=== PATIENT | male | born 1970 | race Caucasian/White ===

== ENCOUNTER 2016-12-04 14:29 | Day surgery (SDC) | payer OTHER ==
[2016-12-04] VITALS (13 sets, daily range): BP systolic 117–147; BP diastolic 66–89; PULSE 88–110; RESP 13–20; O2SAT 92–100
[~2016-12-04] VITALS: Ht 162.6 cm; Wt 64.8 kg
[~2016-12-04 14:29] MED LIST: CeFAZolin Inj 2 GM in IV Premix 1 EACH IV ONE
[2016-12-04] MEDS ORDERED: Propofol 10,000 mCg/mL 20 mL Inj ONE (14:30)
[2016-12-04] MEDS ORDERED: fentaNYL-PF 50 mCg/mL 2 mL Inj ONE (14:30)
[2016-12-04] MEDS ORDERED: Ondansetron 2 mg/mL 2 mL Inj ONE (14:30)
[2016-12-04] MEDS ORDERED: CeFAZolin Inj 2 gm / 50mL D5W IV ONE (15:12)
[2016-12-04] MEDS ORDERED: Lactated Ringer's 1,000 ML IV ONE (15:15)
[2016-12-04] MEDS ORDERED: IBUP200C PO (16:05)
[2016-12-04] MEDS ORDERED: TURM1POW MC (16:05)
[2016-12-04] MEDS ORDERED: [UNRECOGNIZED DRUG - OTHER] (16:05)
[2016-12-04] MEDS ORDERED: [UNRECOGNIZED DRUG - OTHER] PO (16:05)
[2016-12-04] MEDS ORDERED: [UNRECOGNIZED DRUG - OTHER] (16:05)
[2016-12-04] MEDS ORDERED: [UNRECOGNIZED DRUG - OTHER] (16:05)
[2016-12-04] MEDS ORDERED: SKULLCAP (16:05)
[2016-12-04] MEDS ORDERED: MAGN250T2 PO (16:05)
[2016-12-04] MEDS ORDERED: Lactated Ringer's 1,000 ML IV SCH ×2 (16:16→18:28)
[2016-12-04] MEDS ORDERED: Lactated Ringer's 500 ML IV PRN ×2 (16:16→18:28)
--- NOTE | 2016-12-04 16:19 | PCM.HPANE ---
Patient Data Surgeon Admitting Provider: Attending Provider:Juhi Bender MD Primary Care Physician:Ede Palmer MD Other Provider:Kaley Lacyingham Anesthesia Reason for Visit Uretheral Stricture, Gross Hematuria Ht/WT & BMI Height (Feet): 5 Height (Inches): 4 Weight (Kilograms): 64.8 Body Mass Index 24.00 Allergies Coded Allergies: No Known Allergies (Unverified , 12/04/16) Past Anesthesia History Anesthesia History: Denies:: Abnormal Airway, Anesthesia Reactions, Difficult Intubation, Fam Anesthesia Reaction, Fam Malignant Hypertherm, Malignant Hyperthermia Diabetes History Hx Diabetes?: No MRSA MRSA: No Medications Hypertension Medication: No Home Meds Incl Beta Collin: No Reported Medications [Bouarian] No Conflict Check Hs 12/04/16 [Skullcap] No Conflict Check Bid 12/04/16 [Akebia] No Conflict Check5 Mg PO BID 12/04/16 [Herbal Agm] No Conflict Check TID PRN For Pain 12/04/16 Turmeric (Curcumin)1 Gm Powder2 Gm MC BID 12/04/16 Magnesium 250 Mg [id number] Mg PO BID 12/04/16 [Nactylgalutime] No Conflict Check 12/04/16 Ibuprofen 200 Mg [id number] Mg PO QID PRN For Pain Ref 0 12/04/16 History History of ENT Problems?: No HEENT History: Denies:: Abnormal Airway Cataracts Difficult Intubation Dysphagia Glaucoma Hearing Problem Sinus Problem TMJ Denture Type: None Teeth Condition: Within Normal Limits Hx of Heart Problems?: No Cardiovascular History: Denies:: AICD Abdominal Aortic Aneurism Atrial Fibrillation Cardiac Surgery Chest Pain Congestive Heart Failure Coronary Artery Disease Edema Heart Murmur Hypertension Irregular Heartbeat Pacemaker Peripheral Vascular Rheumatic Fever Thrombophlebitis Valvular Heart Disease Hx of Respiratory Problem?: No Respiratory History: Denies:: Asthma COPD Chest Surgery Cough Dyspnea Emphysema Hemoptysis Oxygen Administration Pneumonia Pulmonary Embolism Tuberculosis Use of C-PAP Machine Use of Inhalers / NEBS Hx Neurologic Problems?: No Neurological History: Denies:: Alzheimer's Disease CVA Dementia Dizziness Headaches Multiple Sclerosis Parkinson's Disease Seizures TIA Hx of GI Problems?: No Hx of Problems?: Yes Genitourinary History: Positive for:: Kidney Stones Male Hx: Denies:: Prostate Problems Scrotal Mass Testicular Surgery Skin History: Denies:: History Skin Disorders? Pressure Ulcers Hx Musculoskeletal Problems?: No Musculoskeletal History: Denies:: Back Injury Degenerative Joint Fibromyalgia Joint Replacement Musculoskeletal Trauma Myasthenia Gravis Osteoarthritis Rheumatoid Arthritis Systemic Lupus Hx of Psycho/Social Problems?: No Psycho Social History: Denies:: Anxiety Bipolar Disorder Hx Depression Suicide Attempt Hx Surgeries?: No Hx Any Other Health Problems?: No Other History: Denies:: Cancer Endocrine Disease Hospitalization Thyroid Disease History Blood Transfusions: Positive for:: Accept Blood Products? Denies:: Blood Transfuse Reaction Blood Transfusions Hx Diabetes: No Hx Alcohol Use: NoHx Substance Use: NoHave You Smoked inLast 12 mo: No Stop/Bang Treated for Sleep Apnea?: No Do You Have a CPAP Machine?: No S-Snoring: Do You Snore Loudly: No T-Tired: feel tired, fatigued: No O-Obsered: Observed not breath: No P-Blood Pressure: treated: No B- Body Mass Index > 35 kg/m2: No A- Age over 50: No N- Neck Large Circumference: No G- Gender Male: Yes RAAD Total Score: 1 Risk Assessment Category Category 1A: Patient has history of documented sleep apnea, and HAS NOT received any narcotic, sedative or anesthesia administration during this stay. Category 1B: Patient has history of documented sleep apnea, and HAS received any narcotic , sedative or anesthesia administration during this stay Category 2: Patient has SUSPECTED Obstructive Sleep Apnea, and HAS received any narcotic , sedative or anesthesia administration during this stay. Category 3: Patient has SUSPECTED Obstructive Sleep Apnea and HAS NOT received narcotic, sedative or anesthesia administration during this stay. Category 4: Outpatient in Procedural Areas with known sleep apnea or who screen positive for High Risk via the STOP/BANG questionnaire. Exam Exam Vital Signs Vital Signs Date Time Temp Pulse Resp B/P Pulse Ox O2 Delivery O2 Flow Rate FiO2 12/04/16 15:00 37.0 88 16 117/72 99 Room Air General Appearance: Alert, Oriented X3, Cooperative, No Acute Distress HEENT/AIRWAY: MP 2 Lungs: Clear to Auscultation, Normal Air Movement Heart: Exam Unremarkable, Regular Rate/Rhythm, No Murmurs/Rubs/Gallops Meds/Labs/Diagnostics Admission Meds Current Medications Lactated Ringer's (Lr) 1,000 ml @ ud STK-MED ONCE IV Last administered on 12/04t 15:15; Start 12/04/16 at 15:15; Stop 12/04/16 at 15:50; Status DC Plan Impression Patient chart reviewed, patient interviewed and anesthestic plan with risks, benefits, and alternatives discussed, and informed consent obtained. ASA Physical Status: ASA2 Mod Systemic Disease Anesthetic Plan: GA Bene/Risks/Altern/Consents: Yes HP Complete Prior to Induction: Yes Faisal Bashir MD Dec 04, 2016 16:19
[2016-12-04] MEDS ORDERED: Ondansetron 2 mg/mL 2 mL Inj IVPUSH PRN ×2 (16:20→18:30)
[2016-12-04] MEDS ORDERED: Dexamethasone 4 mg/mL Inj IVPUSH PRN ×2 (16:20→18:30)
[2016-12-04] MEDS ORDERED: EPHEDrine Sulfate 50 mg/mL Inj IVPUSH PRN ×2 (16:20→18:30)
[2016-12-04] MEDS ORDERED: fentaNYL-PF 50 mCg/mL 2 mL Inj IVPUSH PRN ×2 (16:20→18:30)
[2016-12-04] MEDS ORDERED: HYDROmorphone 1 mg/mL Inj IVPUSH PRN ×2 (16:20→18:30)
[2016-12-04] MEDS ORDERED: Phenylephrine 10,000 mCg/mL Inj IVPUSH PRN ×2 (16:20→18:30)
[2016-12-04] MEDS ORDERED: MetoCLOpramide 5 mg/mL 2 mL Inj IVPUSH PRN ×2 (16:20→18:30)
--- NOTE | 2016-12-04 19:11 | PCM.ANEP1 ---
Post Anesthesia PACU Phase 1 Assessment Vital Signs Vital Signs Date Time Temp Pulse Resp B/P Pulse Ox O2 Delivery O2 Flow Rate FiO2 12/04/16 19:00 96 17 132/81 99 Room Air 12/04/16 18:55 96 16 141/78 99 Room Air 12/04/16 18:50 99 20 139/83 99 Room Air 12/04/16 18:45 99 15 131/84 99 Room Air 12/04/16 18:40 90 13 147/71 100 Simple Mask 8 12/04/16 18:35 37.6 110 14 130/70 100 Simple Mask 8 12/04/16 15:00 37.0 88 16 117/72 99 Room Air Anesthetic Administered: GA Level of Alertness: Awake, talking BROWN's with Equal Strength: Yes Pain: No Nausea or Vomiting: No CV Function & Hydration Stable: Yes Airway Device: Oxygen Delivery: Simple Mask Lungs: Clear to Auscultation, Normal Air Movement Dermatome Level: Full Sensation PACU Phase 2 Assessment Complications: No Follow up Care: No Patient Instructions Provided: N/A Faisal Bashir MD Dec 04, 2016 19:11
--- NOTE | 2016-12-04 19:30 | OP ---
[address] [address] OPERATIVE REPORT PATIENT: CHRISTINE LE : 1970 MR#: [id number] ADMIT: 12/04/2016 JOB ID: [id number] DATE OF SURGERY: 12/04/2016 PREOPERATIVE DIAGNOSIS(ES): 1. Urethral stricture. 2. Gross hematuria. POSTOPERATIVE DIAGNOSIS(ES): 1. Urethral stricture. 2. Bladder tumor. PROCEDURE PERFORMED: 1. Digital rectal exam under anesthesia. 2. Cystoscopy and dilation of urethral stricture. Modifier 22 is being requested given the severe nature of the urethral stricture. 3. Transurethral resection of bladder tumor (greater than 4 cm) SURGEON: Juhi Bender MD ESTHETICIAN PERMANENT MAKEUP ARTIST: None. FINDINGS: 1. Normal rectal exam under anesthesia. Prostate is approximately 25 g. There were no palpable abnormal masses. 2. Pinpoint urethral stricture at the bulbar urethra. 3. 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 ANESTHESIA: General. ESTIMATED BLOOD LOSS: Less than 5 mL. DRAINS: A 20-New Zealander Abdalla catheter to the bladder. SPECIMENS: Bladder tumor. COMPLICATIONS: None. CONDITION: Stable. INDICATIONS FOR PROCEDURE: The patient is a 45-year-old gentleman with a history of urinary tract symptoms and gross hematuria. His symptoms the began this past May 2016. Then in June of this year he began passing blood in his urine. CT scan is quite suspicious for a bladder lesion that is fairly large at the dome of the bladder. There is also a question of a lesion on the posterior bladder base, towards the prostate, that could be seminal vesicle or some other undefined lesion. In clinic yesterday it was found on cystoscopy that he had a pinpoint urethral stricture that would require dilation for cystoscopy. He now presents for the aforementioned procedure. DESCRIPTION OF PROCEDURE: After informed consent was obtained, the patient was taken to the operating room. A time-out was performed identifying correct patient, surgical site, and procedure. General anesthesia was smoothly induced. He was given intravenous antibiotics just prior to the start of the procedure. He was placed in the lithotomy position and all pressure points were identified and appropriately padded. A digital rectal exam was performed. There were no abnormal findings on thorough examination. His genitals were then prepped and draped in the usual sterile fashion. A 22-New Zealander rigid cystoscope was applied to the patient's urethra and upon navigating to the bulbar urethra there was found again the two small holes within the urethra. The lumen on the right was just large enough to be cannulated with a 5-New Zealander open-ended Pollack. A retrograde urethrogram was shot through this. The contrast easily navigated into the bladder. The smaller hole inferior and to the left was also attempted to be cannulated but it was quite obvious this was a blind ending pouch. A retrograde urethrogram was attempted, however, to be performed there, and there was no contrast into the bladder. The Pollack was then replaced into the smaller hole superiorly and to the right. Contrast was again instilled and it easily entered into the bladder. A Sensor tip wire was then passed through the Pollack into the bladder as seen under fluoroscopy. The Pollack was then removed. S dilators were used, the smallest being 8-New Zealander and dilated in succession to 20-New Zealander. Cystoscopy then was easily performed through this dilated stricture which appeared to be fairly dense. Modifier 22 is being requested given the pinpoint nature of the stricture and the difficulty in this cystoscopy because of the stricture. The urethral dilation took over 100% longer given the nature of the tiny lumen. Next the bladder was systematically inspected. Both ureteral orifices were seen in orthotopic position. At the dome of the bladder, on the left side mostly, there was a large tumor there. It was consistent with the CT findings of a very large bladder mass. Resection then commenced with Thunderbeat resectoscope, which was easily navigated through the urethra and into the bladder. The tumor was resected in piecemeal fashion. It was quite necrotic and friable. The tumor base and was cauterized with the button. At the end of the procedure there was excellent hemostasis. A 20-New Zealander catheter was then placed into the patient's bladder without difficulty. The balloon was insufflated with 10 mL of sterile water and set to dependent drainage. The patient appeared to tolerate the procedure well, without apparent complications. He was reversed from general anesthesia and taken to the PACU in good and stable condition. I had a long and detailed conversation with the patient's in the waiting room about the intraoperative findings, my suspicions, and the path moving forward, which ultimately rests with the pathologic results from today's procedure. RUIZ
[2016-12-04] MEDS ORDERED: HYDROcodone-APAP 5-325 mg Tablet PO ONE (19:41)
--- NOTE | 2016-12-05 09:28 | DRSVH ---
PROCEDURE: X-RAY RETROGRADE UROGRAPHY INDICATIONS: CYSTO TECHNIQUE: 4 intra-operative images acquired by the Urology service. COMPARISON: [facility], CT, CT KUB, 12/05/2016, 0:37. FINDINGS: 4 submitted images demonstrate opacification of the urinary bladder with contrast media wh ich appears grossly normal. No extravasation of contrast media seen. IMPRESSION: Normal appearance of the urinary bladder and no extravasation contrast media identified o n the 4 submitted images. Dictated by: Vlad Hobson [facility] Interpreted: Germaine Cantu MD on 12/05/2016 at 8:39 Approved by: Germaine Cantu M.D. on 12/05/2016 at 9:27
== END 2016-12-04 23:59 | disposition home or self-care (01) ==
LOC: SAS 14:29
PROVIDERS: ATTEND Urology
DX: C67.1 Malignant neoplasm of dome of bladder (principal); N35.8 Other urethral stricture; R31.0 Gross hematuria; Z87.442 Personal history of urinary calculi
CPT/HCPCS: 52235; 52341; 74420; J0690; J2175; J2250; J2405; J2704; J3010; J7120; Q9967